=== PATIENT | female | born 1965 | race Caucasian/White ===

== ENCOUNTER 2022-03-09 14:01 | Outpatient (CLI) | payer OTHER, SELFPAY ==
[2022-03-09 14:24] LABS: Chloride* 99 mmol/L (96-114)
[2022-03-09 14:25] LABS: Sodium* 134 mmol/L (135-149)
[2022-03-09 14:27] LABS: Cholesterol* 175 mg/dL (90-199); Creatinine* 0.8 mg/dL (0.5-1.5); Estimated Glomerular Filt Rate 86 ml/min
[2022-03-09 14:28] LABS: Blood Urea Nitrogen* 13 mg/dL (7-30); Calcium* 9.1 mg/dL (8.4-10.6); Carbon Dioxide* 27 mmol/L (20-32); Glucose* 112 mg/dL (60-115); Triglycerides* 132 mg/dL (40-149)
[2022-03-09 14:29] LABS: HDL Cholesterol* 67 mg/dL (>=50); LDL Cholesterol Calculated 82 mg/dL (<100)
== END 2022-03-09 14:02 | disposition home or self-care (01) ==
PROVIDERS: PCP Family Medicine; Visit Provider Emergency Medicine
DX: E78.5 Hyperlipidemia, unspecified (principal); I10 Essential (primary) hypertension
CPT/HCPCS: 80048; 80061

== ENCOUNTER 2023-03-16 09:57 | Outpatient (CLI) | payer OTHER, SELFPAY | END 2023-03-16 09:58 | disposition home or self-care (01) | LOC: NFLDREF 03-17 12:57 | PROVIDERS: PCP Emergency Medicine; Referring Provider Emergency Medicine; Visit Provider Emergency Medicine | DX: E78.5 Hyperlipidemia, unspecified (principal); I10 Essential (primary) hypertension; R73.03 Prediabetes | CPT/HCPCS: 80053; 80061 ==

== ENCOUNTER 2023-06-02 07:57 | Outpatient (CLI) | payer OTHER, SELFPAY ==
--- NOTE | 2023-06-02 08:15 | CRLHL7_ITS ---
For Patients: As a result of the Century Cures Act, medical imaging exams and procedure reports are released immediately into your electronic medical record. You may view this report before your referring provider. If you have questions, please contact your health care provider. BILATERAL SCREENING MAMMOGRAM WITH COMPUTER-AIDED DETECTION TECHNIQUE: CC and MLO views were obtained. These mammographic images have been obtained using full-field digital technique. These mammographic images were interpreted with the benefit of computer-aided detection. COMPARISON FILM: 03/11/21, 09/09/19, 09/14/17. FINDINGS: There are scattered areas of fibroglandular density. IMPRESSION: There is no radiographic evidence for malignancy. ASSESSMENT: BI-RADS Category 1: Negative RECOMMENDATION: Routine screening mammogram in 1 year. A lay language report of this examination will be provided to the patient. ALEXANDRE ANDREW M.D. Diagnostic/Nuclear Medicine Radiologist [email or web address] Transcribed: 2:[address]/Dictated by: Alexandre Andrew MD @ 06/02/2023 10:52:00 AM (Electronically Signed)
== END 2023-06-02 07:58 | disposition home or self-care (01) ==
LOC: MAMMO 07:58
PROVIDERS: PCP Family Medicine; Visit Provider Family Medicine
DX: Z12.31 Encounter for screening mammogram for malignant neoplasm of breast (principal)
CPT/HCPCS: 77067

== ENCOUNTER 2024-03-21 16:05 | Outpatient (CLI) | payer OTHER, SELFPAY | END 2024-03-21 16:06 | disposition home or self-care (01) | LOC: LKVREF 16:06 | PROVIDERS: PCP Emergency Medicine; Visit Provider Emergency Medicine | DX: I10 Essential (primary) hypertension (principal) | CPT/HCPCS: 80048 ==

== ENCOUNTER 2024-12-24 09:52 | Outpatient (CLI) | payer OTHER, SELFPAY ==
--- NOTE | 2024-12-24 10:15 | CRLHL7_ITS ---
For Patients: As a result of the Century Cures Act, medical imaging exams and procedure reports are released immediately into your electronic medical record. You may view this report before your referring provider. If you have questions, please contact your health care provider. INDICATION: BILATERAL SCREENING MAMMOGRAM, ASYMPTOMATIC 59 Y/O FEMALE COMPARISON: 06/02/2023, 03/11/2021, 09/09/2019 TECHNIQUE: Digital mammogram in CC and MLO projections including computer-aided detection (CAD) and tomosynthesis. BREAST COMPOSITION: There are scattered areas of fibroglandular density. FINDINGS: No suspicious findings. ASSESSMENT: BI-RADS 1 Negative RECOMMENDATION: Annual screening mammogram. A lay language report of this examination will be provided to the patient. Dictated by: Farrukh Benavides MD @ 12/24/2024 10:51:45 (Electronically Signed)
== END 2024-12-24 09:53 | disposition home or self-care (01) ==
LOC: MAMMO 09:53
PROVIDERS: PCP Emergency Medicine; Visit Provider Emergency Medicine
DX: Z12.31 Encounter for screening mammogram for malignant neoplasm of breast (principal)
CPT/HCPCS: 77063; 77067

== ENCOUNTER 2025-04-28 10:03 | Outpatient (CLI) | payer OTHER, SELFPAY ==
[2025-04-28 23:30] LABS: Chlamydia DNA Amplified* NOT DETECTED (No Detected); GC DNA Amplified* NOT DETECTED (No Detected)
[2025-04-30 19:38] LABS: HPV Genotype 16 by TMA Not Detected; HPV Genotype 18/45 by TMA Not Detected
[2025-05-02 08:08] LABS: Pap Test Digital Imaging Done
[2025-05-14 01:43] LABS: HPV Source Cervical
== END 2025-04-28 10:04 | disposition home or self-care (01) ==
PROVIDERS: Visit Provider Physician Assistant Medical
DX: I10 Essential (primary) hypertension (principal); E78.5 Hyperlipidemia, unspecified; R73.03 Prediabetes; N95.1 Menopausal and female climacteric states; Z11.3 Encounter for screening for infections with a predominantly sexual mode of transmission; Z13.0 Encounter for screening for diseases of the blood and blood-forming organs and certain disorders involving the immune mechanism; Z13.1 Encounter for screening for diabetes mellitus; Z11.51 Encounter for screening for human papillomavirus (HPV)
CPT/HCPCS: 80053; 80061; 84443; 87491; 87591; 87624; 87625; 88141; 88142; 88175

== ENCOUNTER 2025-04-29 06:29 | Outpatient (CLI) | payer OTHER, SELFPAY ==
--- NOTE | 2025-04-29 08:23 | P.ANES_ITS ---
Anesthesia Charges Start Date/Time Anesthesia Start Date: 04/29/25 Anesthesia Start Time: 07:44 Stop Date/Time Anesthesia Stop Date: 04/29/25 Anesthesia Stop Time: 08:21 Coding CPT Codes CPT Codes: ROBBIE SUAREZ INTST NDSC NOS - [id number] ([id number]) P2 - PATIENT W/MILD SYST DISEASE, QX - CANDY WAFFLE ASSEMBLER SVC W/ MD MED DIRECTION, QK - PERSONNEL RECORDS CLERK 2-4 CNCRNT ANERuthann PROC
--- NOTE | 2025-04-29 08:23 | W.ANESCHARGE ---
Anesthesia Charges Start Date/Time Anesthesia Start Date: 04/29/25 Anesthesia Start Time: 07:44 Stop Date/Time Anesthesia Stop Date: 04/29/25 Anesthesia Stop Time: 08:21 Coding CPT Codes CPT Codes: ROBBIE SUAREZ INTST NDSC NOS - [id number] ([id number]) P2 - PATIENT W/MILD SYST DISEASE, QX - OUTREACH TEAM MEMBER SVC W/ MD MED DIRECTION, QK - LOGISTICS DIRECTOR 2-4 CNCRNT ANERuthann PROC
--- NOTE | 2025-04-29 11:48 | P.ANES_ITS ---
Anesthesia Charges Start Date/Time Anesthesia Start Date: 04/29/25 Anesthesia Start Time: 07:44 Stop Date/Time Anesthesia Stop Date: 04/29/25 Anesthesia Stop Time: 08:21 Coding CPT Codes CPT Codes: ROBBIE LWR INTST NDSC NOS - [id number] ([id number]) P2 - PATIENT W/MILD SYST DISEASE, QK - CMA OR LPN 2-4 CNCRNT ANES PROC, QX - PUMP SERVICER HELPER SVC W/ MD MED DIRECTION
--- NOTE | 2025-04-29 11:48 | W.ANESCHARGE ---
Anesthesia Charges Start Date/Time Anesthesia Start Date: 04/29/25 Anesthesia Start Time: 07:44 Stop Date/Time Anesthesia Stop Date: 04/29/25 Anesthesia Stop Time: 08:21 Coding CPT Codes CPT Codes: ROBBIE LWR INTST NDSC NOS - [id number] ([id number]) P2 - PATIENT W/MILD SYST DISEASE, QK - PAPER GRADER 2-4 CNCRNT ANES PROC, QX - CPR AMBULANCE DRIVER SVC W/ MD MED DIRECTION
== END 2025-04-29 06:30 | disposition home or self-care (01) ==
LOC: OP CLINIC 06:30
PROVIDERS: Visit Provider Surgery
DX: Z12.11 Encounter for screening for malignant neoplasm of colon (principal); D12.0 Benign neoplasm of cecum; D12.2 Benign neoplasm of ascending colon; D12.3 Benign neoplasm of transverse colon; D12.4 Benign neoplasm of descending colon; K64.4 Residual hemorrhoidal skin tags; K57.30 Diverticulosis of large intestine without perforation or abscess without bleeding
CPT/HCPCS: 00811; 00812; 45385; 88305; J2704